=== PATIENT | male | born 1970 | race Caucasian/White ===

== ENCOUNTER 2017-07-13 16:39 | Emergency (ER) | payer OTHER ==
[2017-07-13 16:48] VITALS: BMI 29.1
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
[2017-07-13] MEDS ORDERED: TORADOL 60 MG VIAL IM ONE (17:52)
[2017-07-13] MEDS ORDERED: TORADOL 60 MG VIAL ONE (17:58)
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
[2017-07-13 20:34] VITALS: BP 188/92
== END 2017-07-13 20:30 | disposition home or self-care (01) ==
LOC: ER 17:02
DX: S16.1XXA Strain of muscle, fascia and tendon at neck level, initial encounter (principal); S39.012A Strain of muscle, fascia and tendon of lower back, initial encounter; S29.019A Strain of muscle and tendon of unspecified wall of thorax, initial encounter; V49.9XXA Car occupant (driver) (passenger) injured in unspecified traffic accident, initial encounter
CPT/HCPCS: 72050; 72072; 72110; 72125; 96372; 99283; J1885